=== PATIENT | female | born 1995 | race Caucasian/White ===

== ENCOUNTER 2021-04-06 18:39 | Emergency (ER) | payer SELFPAY ==
[~2021-04-06] VITALS: Ht 160 cm; Wt 56.8 kg
[2021-04-06 18:40] VITALS: BP 126/82
[2021-04-06] MEDS ORDERED: PRENTAB53 PO (18:59)
== END 2021-04-06 20:57 | disposition left against medical advice (07) ==
LOC: M ED 18:39
DX: Z53.21 Procedure and treatment not carried out due to patient leaving prior to being seen by health care provider (principal)

== ENCOUNTER → 2021-10-30 | Outpatient (CLI) | payer OTHER ==
[~2021-10-30] MED LIST: PRENTAB53 PO
== END ==
LOC: M RAD 13:10
PROVIDERS: ATTEND Obstetrics & Gynecology
DX: R89.1 Abnormal level of hormones in specimens from other organs, systems and tissues (principal)

== ENCOUNTER → 2021-11-01 | Outpatient (CLI) | payer OTHER | LOC: M LAB 11:57 | PROVIDERS: ATTEND Obstetrics & Gynecology | DX: O03.4 Incomplete spontaneous abortion without complication (principal) ==

== ENCOUNTER → 2021-11-02 | Outpatient (CLI) | payer OTHER | LOC: M LAB 14:03 | PROVIDERS: ATTEND Obstetrics & Gynecology | DX: O02.81 Inappropriate change in quantitative human chorionic gonadotropin (hCG) in early pregnancy (principal) ==

== ENCOUNTER → 2021-11-05 | Outpatient (CLI) | payer OTHER | LOC: M LAB 10:42 | PROVIDERS: ATTEND Obstetrics & Gynecology | DX: O02.81 Inappropriate change in quantitative human chorionic gonadotropin (hCG) in early pregnancy (principal) ==

== ENCOUNTER → 2021-11-08 | Outpatient (CLI) | payer OTHER | LOC: M LAB 12:01 | PROVIDERS: ATTEND Obstetrics & Gynecology | DX: O02.81 Inappropriate change in quantitative human chorionic gonadotropin (hCG) in early pregnancy (principal) ==

== ENCOUNTER 2021-11-09 13:32 | Outpatient (CLI) | payer OTHER ==
[~2021-11-09] VITALS: Ht 160 cm; Wt 57.6 kg
[2021-11-09 13:35] VITALS: BP 133/77
[2021-11-09] MEDS ORDERED: METHOTREXATE 50MG/2ML VIAL (J9260 PER 50MG) IM ONE (15:00)
[2021-11-09 15:29] VITALS: BP 127/74
== END 2021-11-09 15:30 | disposition home or self-care (01) ==
LOC: M INFU 13:32
PROVIDERS: ATTEND Obstetrics & Gynecology
DX: O00.90 Unspecified ectopic pregnancy without intrauterine pregnancy (principal); Z88.2 Allergy status to sulfonamides; Z88.8 Allergy status to other drugs, medicaments and biological substances
CPT/HCPCS: 96401; J9260